=== PATIENT | female | born 1935 | race Caucasian/White ===

== ENCOUNTER 2018-02-06 20:23 | Inpatient (IN) | payer MEDICARE, BC ==
[~2018-02-06] VITALS: Ht 162.6 cm; Wt 100.0 kg
[2018-02-06] MEDS ORDERED: furosemide 40mg/4ml inj IV ONE (20:50)
[2018-02-06 20:53] LABS: BASOPHILS % (AUTO) 0 % (0-1); EOSINOPHILS # (AUTO) 0.1 X10'3 (0-0.9); EOSINOPHILS % (AUTO) 1.2 % (0-6); HEMOGLOBIN 12.3 g/dl (12.0-16.0); LYMPHOCYTES # (AUTO) 0.3 X10'3 (1.1-4.8); LYMPHOCYTES % (AUTO) 7.2 % (21-51); MEAN CORPUSCULAR HEMOGLOBIN 26.8 PG (27.0-31.0); MEAN CORPUSCULAR HGB CONC 31.6 % (33.0-36.5); MEAN PLATELET VOLUME 10.3 FL (7.4-10.4); MONOCYTES # (AUTO) 0.1 X10'3 (0-0.9); MONOCYTES % (AUTO) 3.1 % (2-12); NEUTROPHILS # (AUTO) 3.8 X10'3 (1.8-7.7); NEUTROPHILS % (AUTO) 88.5 % (42-75); PLATELET COUNT 200 X10'3 (140-440); RED CELL DISTRIBUTION WIDTH 26.2 % (11.5-14.5); WHITE BLOOD COUNT 4.4 X10'3 (4.5-11.0)
[2018-02-06 21:05] LABS: INR 1.3 INR; PARTIAL THROMBOPLASTIN TIME 31 SECONDS (22-32); PROTHROMBIN TIME 13.1 SECONDS (9.0-12.0)
[2018-02-06 21:09] LABS: ALANINE AMINOTRANSFERASE 31 U/L (12-78); ALBUMIN 2.7 G/DL (3.4-5.0); ALBUMIN/GLOBULIN RATIO 0.7 (1.1-1.5); ALKALINE PHOSPHATASE 73 IU/L (46-116); ANION GAP 14 (8-16); ASPARTATE AMINO TRANSFERASE 71 U/L (10-37); BILIRUBIN,TOTAL 2.4 MG/DL (0.1-1.0); BLOOD UREA NITROGEN 21 MG/DL (7-18); BUN/CREATININE RATIO 18.3 (6.6-38.0); CALCIUM 8.9 MG/DL (8.5-10.1); CHLORIDE 106 MMOL/L (99-107); CREATININE 1.15 MG/DL (0.40-0.90); GLUCOSE 141 MG/DL (70-104); POTASSIUM 4.1 MMOL/L (3.5-5.1); SODIUM 141 MMOL/L (135-145); TOTAL CARBON DIOXIDE 21.2 MMOL/L (24-32); TOTAL PROTEIN 6.7 G/DL (6.4-8.2); eGFR 45 ML/MIN
[2018-02-06 21:15] LABS: MAGNESIUM 1.3 MG/DL (1.5-2.4)
[2018-02-06 21:28] LABS: ANISOCYTOSIS 3+; MICROCYTOSIS 2+; PLATELET ESTIMATE NORMAL; POIKILOCYTOSIS 1+; POLYCHROMASIA 1+; SPHEROCYTES 1+; TARGET CELLS 1+
[2018-02-06] MEDS ORDERED: magnesium hydroxide 30ml (MOM) UD suspension PO PRN (21:30)
[2018-02-06] MEDS ORDERED: acetaminophen 325mg tablet PO PRN (21:30)
[2018-02-06] MEDS ORDERED: mag hydrox/Alum hydrox/simeth 30ml oral suspension PO PRN (21:30)
[2018-02-06] MEDS ORDERED: ondansetron/PF 4mg/2ml inj IV PRN (21:30)
[2018-02-06] MEDS ORDERED: HYDR-4069 PO (21:40)
[2018-02-06] MEDS ORDERED: ATOR20TA PO (21:40)
[2018-02-06] MEDS ORDERED: ISOS60TA4 PO (21:40)
[2018-02-06] MEDS ORDERED: ALLO100T PO (21:40)
[2018-02-06] MEDS ORDERED: METO25TA6 PO (21:40)
[2018-02-06] MEDS ORDERED: ASPI81TA52 PO (21:40)
[2018-02-06] MEDS ORDERED: CLOP75TA35 PO (21:40)
[2018-02-06] MEDS ORDERED: LANS30CA37 PO (21:40)
[2018-02-06] MEDS ORDERED: SPIR25TA5 PO (21:40)
[2018-02-06] MEDS ORDERED: OMEG1CAP2 PO (21:40)
[2018-02-06] MEDS ORDERED: FENO135C4 PO (21:40)
[2018-02-06] MEDS ORDERED: furosemide 10 MG/1 ML 10ml inj IV ONE (21:50)
[2018-02-06 23:00] VITALS: BP 158/69
[2018-02-07] MEDS ORDERED: potassium Cl 20 mEq SR tablet PO PRN ×2 (01:15)
[2018-02-07] MEDS ORDERED: potassium Cl 40MEQ/NS 500ml 500 ML IV PRN ×2 (01:15)
[2018-02-07] MEDS ORDERED: magnesium 4gm in 100ml NS 100 ML IV PRN (01:15)
[2018-02-07 01:31] VITALS: BP 164/64
[2018-02-07] MEDS: magnesium Cl slow-release 64mg tablet PO PRN ×2 (01:37→08:58)
[2018-02-07] MEDS: hydrALAZINE 25 MG tablet PO SCH ×4 (01:41→19:33)
[2018-02-07 02:24] LABS: BASOPHILS % (AUTO) 0.1 % (0-1); HEMATOCRIT 36.5 % (35.0-45.0); HEMOGLOBIN 11.4 g/dl (12.0-16.0); LYMPHOCYTES # (AUTO) 0.4 X10'3 (1.1-4.8); LYMPHOCYTES % (AUTO) 15.4 % (21-51); MEAN CORPUSCULAR HEMOGLOBIN 26.5 PG (27.0-31.0); MEAN CORPUSCULAR HGB CONC 31.1 % (33.0-36.5); MEAN CORPUSCULAR VOLUME 85.1 FL (78-98); MEAN PLATELET VOLUME 10.8 FL (7.4-10.4); MONOCYTES % (AUTO) 1.7 % (2-12); NEUTROPHILS % (AUTO) 81.8 % (42-75); PLATELET COUNT 187 X10'3 (140-440); RED CELL DISTRIBUTION WIDTH 27.1 % (11.5-14.5); WHITE BLOOD COUNT 2.5 X10'3 (4.5-11.0)
[2018-02-07 02:33] LABS: ALANINE AMINOTRANSFERASE 29 U/L (12-78); ALBUMIN 2.4 G/DL (3.4-5.0); ALBUMIN/GLOBULIN RATIO 0.6 (1.1-1.5); ALKALINE PHOSPHATASE 64 IU/L (46-116); ANION GAP 15 (8-16); ASPARTATE AMINO TRANSFERASE 65 U/L (10-37); BILIRUBIN,TOTAL 2.1 MG/DL (0.1-1.0); BLOOD UREA NITROGEN 21 MG/DL (7-18); BUN/CREATININE RATIO 19.8 (6.6-38.0); CALCIUM 8.7 MG/DL (8.5-10.1); CHLORIDE 107 MMOL/L (99-107); CREATININE 1.06 MG/DL (0.40-0.90); GLUCOSE 147 MG/DL (70-104); POTASSIUM 3.9 MMOL/L (3.5-5.1); SODIUM 143 MMOL/L (135-145); TOTAL CARBON DIOXIDE 21.1 MMOL/L (24-32); TOTAL PROTEIN 6.1 G/DL (6.4-8.2); eGFR 50 ML/MIN
[2018-02-07 02:56] LABS: ANISOCYTOSIS 3+; PLATELET ESTIMATE NORMAL; TOTAL CELLS COUNTED 100
[2018-02-07 02:57] LABS: TARGET CELLS FEW
[2018-02-07 03:00] VITALS: BP 160/64
[2018-02-07 05:00] VITALS: BP 160/52
[2018-02-07 05:23] LABS: MAGNESIUM 1.3 MG/DL (1.5-2.4)
[2018-02-07 05:24] LABS: POTASSIUM 4.1 MMOL/L (3.5-5.1)
[2018-02-07 06:00] VITALS: BP 163/64
[2018-02-07] MEDS ORDERED: spironolactone 25 MG tablet PO SCH (08:00)
[2018-02-07] MEDS ORDERED: OMEGA-3/DHA/EPA/FISH OIL 1 EACH CAPSULE.DR PO SCH (08:00)
[2018-02-07] MEDS: isosorbide mononitrate 30mg tab.SR.24H PO SCH (08:55)
[2018-02-07] MEDS: pantoprazole 40mg Tablet.DR PO SCH (08:56)
[2018-02-07] MEDS: clopidogrel 75mg tablet PO SCH (08:56)
[2018-02-07] MEDS: atorvastatin 20mg tablet PO SCH (08:57)
[2018-02-07] MEDS: aspirin 81mg tablet.DR PO SCH (08:57)
[2018-02-07] MEDS: heparin, porcine 5000 units/ml vial SQ SCH ×2 (08:57→19:33)
[2018-02-07] MEDS: metoprolol tartrate 25mg tablet PO SCH ×2 (08:59→19:33)
[2018-02-07 09:45] LABS: ABG BASE EXCESS -6.7 mmol/L (-2.0-3.0); ABG HCO3 16.5 mmol/L (22.0-26.0); ABG OXYGEN SATURATION 96.6 % (95-98); ABG PCO2 (T) 26.5 mmHg (32.0-45.0); ABG PH (T) 7.413 (7.350-7.450); ABG PO2 (T) 92.3 mmHg (83-108); ALLEN'S TEST Positive; FCOHb 0.1 % (0.5-1.5); FMetHb 0.2 % (0.3-1.12); FO2Hb 96.3 % (94-100); MINUTE VOLUME 10 L/min; RESPIRATORY RATE (OBSERVED) 24 b/min; TOTAL HEMOGLOBIN 11.3 G/dl (12.0-16.0)
[2018-02-07] MEDS: furosemide 40mg/4ml inj IV SCH ×2 (11:21→19:34)
[2018-02-07] MEDS: potassium Cl 20 mEq SR tablet PO SCH (11:22)
[2018-02-07 18:00] VITALS: BP 128/70
[2018-02-07] MEDS: metoprolol tartrate 50mg tablet PO SCH (20:00)
[2018-02-07] MEDS ORDERED: metoprolol tartrate 25mg tablet PO ONE (20:40)
[2018-02-07] MEDS ORDERED: fenofibrate 145mg tablet PO SCH (21:00)
[2018-02-07] MEDS ORDERED: allopurinol 300 MG tablet PO SCH (21:00)
[2018-02-07 22:00] VITALS: BP 140/55
[2018-02-07 23:51] LABS: CLARITY,URINE CLEAR (Clear); COLOR,URINE YELLOW (Yellow); GLUCOSE, URINE NEGATIVE (Neg); KETONES,URINE NEGATIVE (Neg); LEUKOCYTE ESTERASE ,URINE NEGATIVE (Neg); NITRITES, URINE NEGATIVE (Neg); OCCULT BLOOD,URINE NEGATIVE (Neg); PH,URINE 5.5 (4.8-8.0); PROTEIN,URINE NEGATIVE (Neg); UROBILINOGEN,URINE 0.2 E.U/dL (0.2-1.0)
[2018-02-08 00:01] LABS: UA COLLECTION TYPE STRAIGHT CATH
[2018-02-08] MEDS: hydrALAZINE 25 MG tablet PO SCH ×3 (01:40→14:02)
[2018-02-08 02:00] VITALS: BP 127/46
[2018-02-08 05:19] LABS: BASOPHILS % (AUTO) 0 % (0-1); EOSINOPHILS # (AUTO) 0.2 X10'3 (0-0.9); EOSINOPHILS % (AUTO) 1.7 % (0-6); HEMATOCRIT 35.9 % (35.0-45.0); HEMOGLOBIN 11.2 g/dl (12.0-16.0); LYMPHOCYTES # (AUTO) 0.9 X10'3 (1.1-4.8); LYMPHOCYTES % (AUTO) 9.2 % (21-51); MEAN CORPUSCULAR HEMOGLOBIN 26.6 PG (27.0-31.0); MEAN CORPUSCULAR HGB CONC 31.1 % (33.0-36.5); MEAN CORPUSCULAR VOLUME 85.6 FL (78-98); MEAN PLATELET VOLUME 10.5 FL (7.4-10.4); MONOCYTES # (AUTO) 0.4 X10'3 (0-0.9); MONOCYTES % (AUTO) 3.9 % (2-12); NEUTROPHILS # (AUTO) 8.2 X10'3 (1.8-7.7); NEUTROPHILS % (AUTO) 85.2 % (42-75); PLATELET COUNT 181 X10'3 (140-440); WHITE BLOOD COUNT 9.6 X10'3 (4.5-11.0)
[2018-02-08 05:38] LABS: ALANINE AMINOTRANSFERASE 36 U/L (12-78); ALBUMIN 2.5 G/DL (3.4-5.0); ALBUMIN/GLOBULIN RATIO 0.7 (1.1-1.5); ALKALINE PHOSPHATASE 63 IU/L (46-116); ANION GAP 9 (8-16); ASPARTATE AMINO TRANSFERASE 65 U/L (10-37); BILIRUBIN,TOTAL 1.9 MG/DL (0.1-1.0); BLOOD UREA NITROGEN 28 MG/DL (7-18); BUN/CREATININE RATIO 20.9 (6.6-38.0); CALCIUM 8.7 MG/DL (8.5-10.1); CHLORIDE 106 MMOL/L (99-107); CHOL/HDL RATIO 7.9 (0.00-4.99); CHOLESTEROL 135 MG/DL (0-200); CREATININE 1.34 MG/DL (0.40-0.90); GLUCOSE 128 MG/DL (70-104); HDL CHOLESTEROL 17 MG/DL (35-60); LDL CHOLESTEROL 93 MG/DL (50-100); MAGNESIUM 1.5 MG/DL (1.5-2.4); POTASSIUM 3.8 MMOL/L (3.5-5.1); SODIUM 139 MMOL/L (135-145); TOTAL CARBON DIOXIDE 24.1 MMOL/L (24-32); TOTAL PROTEIN 6.1 G/DL (6.4-8.2); TRIGLYCERIDES 124 MG/DL (20-135); eGFR 38 ML/MIN
[2018-02-08 06:00] VITALS: BP 132/49
[2018-02-08] MEDS: pantoprazole 40mg Tablet.DR PO SCH (08:16)
[2018-02-08] MEDS: metoprolol tartrate 50mg tablet PO SCH (08:16)
[2018-02-08] MEDS: potassium Cl 20 mEq SR tablet PO SCH (08:16)
[2018-02-08] MEDS: aspirin 81mg tablet.DR PO SCH (08:16)
[2018-02-08] MEDS: clopidogrel 75mg tablet PO SCH (08:16)
[2018-02-08] MEDS: atorvastatin 20mg tablet PO SCH (08:17)
[2018-02-08] MEDS: isosorbide mononitrate 30mg tab.SR.24H PO SCH (08:17)
[2018-02-08] MEDS: heparin, porcine 5000 units/ml vial SQ SCH (08:18)
[2018-02-08] MEDS: furosemide 40mg/4ml inj IV SCH (08:19)
[2018-02-08] MEDS ORDERED: PARoxetine 20mg tablet PO SCH (08:55)
[2018-02-08 10:53] LABS: ANISOCYTOSIS 3+; PLATELET ESTIMATE NORMAL
[2018-02-08 10:54] LABS: SCHISTOCYTES FEW; TARGET CELLS FEW
[2018-02-08 10:55] LABS: SPHEROCYTES FEW
[2018-02-08 10:58] LABS: ELLIPTOCYTES FEW; POIKILOCYTOSIS 1+
[2018-02-08 11:00] VITALS: BP 120/43
[2018-02-08] MEDS ORDERED: POTA-82 PO (13:54)
[2018-02-08] MEDS ORDERED: PARO20TA6 PO (13:54)
[2018-02-08] MEDS ORDERED: FURO-150 PO (13:54)
[2018-02-08 15:00] VITALS: BP 121/71
== END 2018-02-08 17:56 | disposition home health service (06) | DRG 280 ==
LOC: ER 20:24 → PCU 3S 21:28
PROVIDERS: ADMIT Internal Medicine; ATTEND Family Medicine
PROC: 5A09357 Assistance with Respiratory Ventilation, Less than 24 Consecutive Hours, Continuous Positive Airway Pressure (ICD-10-PCS; principal; 2018-02-06)
PROC: 5A09357 Assistance with Respiratory Ventilation, Less than 24 Consecutive Hours, Continuous Positive Airway Pressure (ICD-10-PCS; 2018-02-07)
DX: I21.4 Non-ST elevation (NSTEMI) myocardial infarction (principal); I50.23 Acute on chronic systolic (congestive) heart failure; J96.01 Acute respiratory failure with hypoxia; I25.810 Atherosclerosis of coronary artery bypass graft(s) without angina pectoris; N39.0 Urinary tract infection, site not specified; E78.5 Hyperlipidemia, unspecified; I11.0 Hypertensive heart disease with heart failure; Z96.653 Presence of artificial knee joint, bilateral; M19.90 Unspecified osteoarthritis, unspecified site; I25.2 Old myocardial infarction; Z88.0 Allergy status to penicillin; Z79.02 Long term (current) use of antithrombotics/antiplatelets; Z79.82 Long term (current) use of aspirin; Z79.899 Other long term (current) drug therapy; Z95.1 Presence of aortocoronary bypass graft; Z87.891 Personal history of nicotine dependence
CPT/HCPCS: 36415; 36600; 71045; 80053; 80061; 81003; 82803; 83735; 83880; 84132; 84484; 85018; 85025; 85610; 85730; 87070; 93005; 93306; 94660; 94760; 96374; 97116; 97162; 97530; 99285; A4353; J1644; J1940